=== PATIENT | male | born 1965 | race African-American/Black ===

== ENCOUNTER 2018-12-16 20:22 | Emergency (ER) | payer OTHER ==
[2018-12-16 20:37] VITALS: BP 141/91; PULSE 87; TEMP 99.2; BMI 26.6
--- NOTE | 2018-12-16 20:39 | PDOC ---
Rapid Medical Evaluation Chief Complaint: Pain, Acute Time Seen by Provider: 12/16/18 20:34 Medical Evaluation: 12/16/18 20:34 I have performed a brief in-person evaluation of this patient. The patient presents with a chief complaint of: Rt flank pain since yesterday. did not take anything for pain. Denies urinary frequency or dysuria. Pertinent physical exam findings: mild TTP to right flank area. no CVAT I have ordered the following: ua, Ucx spiral CT The patient will proceed to the ED for further evaluation. Discharge Disposition - Diagnosis Right flank pain - Discharge Dispostion Condition at time of disposition: Stable - Referrals - Patient Instructions - Post Discharge Activity
[2018-12-16] MEDS ORDERED: SODIUM CHLORIDE 1,000 ML IV STA (21:15)
--- NOTE | 2018-12-16 21:46 | PDOC ---
History of Present Illness - General Chief Complaint: Pain Stated Complaint: BACK PAIN Time Seen by Provider: 12/16/18 20:34 History Source: Patient - History of Present Illness Initial Comments: 12/16/18 21:42 53 year old male with right side upper back pain x 2 days. patient reports that he was gardening 3 days ago reports the next day pain started. pain is worse with movement, denies abdominal pain, nausea, vomiting, lower abdominal pain, urinary symptoms. patient also reports cough and nasal congestion. Denies Pmhx Past History - Past Medical History Allergies/Adverse Reactions: Allergies Allergy/AdvReac Type Severity Reaction Status Date / Time No Known Allergies Allergy Verified 12/16/18 20:37 Home Medications: Ambulatory Orders Cyclobenzaprine HCl [Flexeril -] 10 mg PO HS PRN #7 tablet 12/16/18 Ibuprofen 600 mg PO QID PRN #20 tablet 12/16/18 Asthma: Yes COPD: No - Suicide/Smoking/Psychosocial Hx Smoking History: Never smoked Review of Systems - Review of Systems Able to Perform ROS?: Yes Is the patient limited Setswana proficient: No Constitutional: No: Symptoms Reported, See HPI, Chills, Diaphoresis, Fever, Loss of Appetite, Malaise, Night Sweats, Weakness, Weight Stable, Unintentional Wgt. Loss, Unexplained wgt Loss, Other HEENTM: Yes: Nose Congestion Respiratory: Yes: Cough Musculoskeletal: Yes: Back Pain Neurological: No: Symptoms reported, See HPI, Headache, Numbness, Paresthesia, Pre-Existing Deficit, Seizure, Tingling, Tremors, Weakness, Unsteady Gait, Ataxia, Dizziness, Other *Physical Exam - Vital Signs Last Vital Signs Temp Pulse Resp BP Pulse Ox 99.2 F 87 18 141/91 99 12/16/18 20:34 12/16/18 20:34 12/16/18 20:34 12/16/18 20:34 12/16/18 20:34 - Physical Exam General Appearance: Yes: Appropriately Dressed HEENT: positive: Nasal Congestion, Rhinorrhea Respiratory/Chest: positive: Chest Tender (right sided / upper back pain on palpation), Lungs Clear Cardiovascular: positive: Regular Rhythm, Regular Rate Gastrointestinal/Abdominal: positive: Normal Bowel Sounds, Soft. negative: Tender Extremity: positive: Normal Capillary Refill, Normal Inspection, Normal Range of Motion Integumentary: positive: Normal Color, Dry, Warm Neurologic: positive: Fully Oriented, Alert Progress Note - Progress Note Progress Note: A: musculoskeletal rib pain P: chest xray: negative Ua: negative toradol lidocaine patch *DC/Admit/Observation/Transfer Diagnosis at time of Disposition: Rib pain on right side, Costochondral chest pain - Discharge Dispostion Disposition: HOME Condition at time of disposition: Stable - Prescriptions Prescriptions: Cyclobenzaprine HCl [Flexeril -] 10 mg PO HS PRN #7 tablet PRN Reason: Muscle Spasms Ibuprofen 600 mg PO QID PRN #20 tablet PRN Reason: Back Pain - Referrals Referrals: Tanya Newton [Primary Care Provider] - Call tomorrow - Patient Instructions Printed Discharge Instructions: Muscle Strain Additional Instructions: do light stretches Apply ice to the area for the first 24 hours. Then alternate with ice and heat after. Take ibuprofen every 6 hours as needed for pain. Take Flexeril as prescribed for muscle spasm. Flexeril can make you sleepy, do not drive or operate heavy machinery after taking the medication. Follow-up with an orthopedic doctor if symptoms persist. A referral was given to you today. Return to the emergency room for any worsening symptoms. - Post Discharge Activity Forms/Work/School Notes: Back to Work
[2018-12-16] MEDS ORDERED: LIDOCAINE 5% TOPICAL PATCH TP ONE (21:49)
[2018-12-16] MEDS ORDERED: IBUPROFEN 400 MG TABLET (FP) PO ONE (21:49)
[2018-12-16] MEDS ORDERED: KETOROLAC TROMETHAMINE 30 MG/1 ML VIAL IM ONE (21:50)
[2018-12-16] MEDS ORDERED: LIDOCAINE PATCH REMOVAL MC SCH (22:00)
[2018-12-16] MEDS ORDERED: KETOROLAC TROMETHAMINE 30 MG/1 ML VIAL ONE (22:09)
[2018-12-16] MEDS ORDERED: LIDOCAINE 5% TOPICAL PATCH ONE (22:09)
[2018-12-16 22:10] LABS: EPI CELLS 0.4 /HPF (0-5/HPF); HYALINE CASTS 3 /lpf (0-8); URINE APPEARANCE CLEAR; URINE BACTERIA 0 /hpf (NEGATIVE); URINE BILIRUBIN NEGATIVE (NEGATIVE); URINE COLOR YELLOW; URINE GLUCOSE (UA) NEGATIVE (NEGATIVE); URINE KETONE NEGATIVE (NEGATIVE); URINE LEUK ESTERASE NEGATIVE (NEGATIVE); URINE NITRITE NEGATIVE (NEGATIVE); URINE PROTEIN NEGATIVE (NEGATIVE); URINE RBC 2 /hpf (0-4); URINE UROBILINOGEN 0.2 mg/dL (0.2-1.0); URINE WBC 0 /hpf (0-5)
== END 2018-12-16 23:26 | disposition home or self-care (01) ==
LOC: JER 20:22
PROC: 3E0233Z Introduction of Anti-inflammatory into Muscle, Percutaneous Approach (ICD-10-PCS; principal; 2018-12-16)
DX: M94.0 Chondrocostal junction syndrome [Tietze] (principal)
CPT/HCPCS: 71046-TC-FY; 81003; 87086; 99282-25